=== PATIENT | male | born 1960 | race Two or more races ===

== ENCOUNTER 2017-02-21 15:28 | Inpatient (IN) | payer SELFPAY ==
[~2017-02-21] VITALS: Ht 165.1 cm; Wt 81.7 kg
[2017-02-22] MEDS ORDERED: SODIUM CHLORIDE 0.9% 2,000 ML IV ONE (04:59)
[2017-02-22 05:38] LABS: Basophils # (auto) 0.1 uL; Basophils % (auto) 0.4 % (0.0-2.0); Eosinophils # (auto) 0 uL; Eosinophils % (auto) 0.2 % (0.0-7.0); Hematocrit 36.1 % (41.0-53.0); Hemoglobin 12.5 g/dL (13.5-17.5); Lymphocytes # (auto) 1.2 uL; Lymphocytes % (auto) 6.5 % (10.0-50.0); Mean Corpuscular Hemoglobin 29.6 pg (28.0-32.0); Mean Corpuscular Hgb Conc. 34.7 g/dL (32.0-36.0); Mean Corpuscular Volume 85.3 fL (80.0-100.0); Mean Platelet Volume 8.4 fL (6.9-10.8); Monocytes # (auto) 2.1 uL; Monocytes % (auto) 11.1 % (0.0-12.0); Neutrophils # (auto) 15.1 uL; Neutrophils % (auto) 81.8 % (37.0-80.0); Nucleated Red Blood Cells % 0.1 %; Platelet Count (auto) 321 10^3/uL (140-450); Red Cell Distribution Width 12.3 % (11.8-14.3); White Blood Cell 18.5 10^3/uL (4.4-10.8)
[2017-02-22 05:52] LABS: INR 1.05 (0.9-1.15); Partial Thromboplastin Time 29.3 sec (22.64-33.71); Prothrombin Time 11.4 sec (9.37-12.3)
[2017-02-22] MEDS ORDERED: cefTRIAXone 1GM/50ML D5W 50 ML IV ONE (06:00)
[2017-02-22] MEDS ORDERED: VANCOMYCIN 1GM/250ML 250 ML IV ONE (06:00)
[2017-02-22 06:05] LABS: Albumin 2.7 g/dL (3.4-5.0); BUN/Creatinine Ratio 21.6; Bilirubin, Total 1.6 mg/dL (0.2-1.0); Potassium 3.6 mmol/L (3.5-5.1); Total Protein 8.6 g/dL (6.4-8.2)
[2017-02-22] MEDS: SODIUM CHLORIDE 0.9% 1,000 ML IV SCH (09:05)
[2017-02-22] MEDS ORDERED: DEXTROSE (50%) 50ML SYRG IV PRN (09:15)
[2017-02-22] MEDS ORDERED: VANCOMYCIN PER PHARMACY 0 MG IV SCH (09:15)
[2017-02-22] MEDS ORDERED: NITROGLYCERIN 0.4 MG SL TAB SL PRN (09:15)
[2017-02-22] MEDS ORDERED: TEMAZEPAM 15 MG CAP PO PRN (09:15)
[2017-02-22] MEDS ORDERED: DOCUSATE SOD 100 MG CAP PO PRN (09:15)
[2017-02-22] MEDS ORDERED: HYDROmorphone HCL 2 MG/ML VL IV PRN (09:15)
[2017-02-22] MEDS ORDERED: ONDANSETRON HCL 4 MG/2 ML VIAL IV PRN (09:15)
[2017-02-22] MEDS: ASCORBIC ACID 500 MG TAB PO SCH ×2 (10:00→22:09)
[2017-02-22] MEDS: FAMOTIDINE 20 MG TAB PO SCH ×2 (10:00→22:09)
[2017-02-22] MEDS: ZINC SULFATE 220 MG CAP PO SCH (10:00)
[2017-02-22] MEDS: MULTIPLE VITAMIN TAB PO SCH (10:00)
[2017-02-22] MEDS ORDERED: PNEUMOCOCCAL VACC POLYS 25 MCG/0.5 ML VIAL IM ONE ×2 (11:30→11:45)
[2017-02-22] MEDS ORDERED: INFLUENZA QUAD 2017-2018 0.5 ML SYRG IM ONE ×2 (11:30→11:45)
[2017-02-22] MEDS ORDERED: GLIP-115 PO (11:31)
[2017-02-22] MEDS ORDERED: METF-370 PO (11:31)
[2017-02-22] MEDS: ACCU-CHEK COMFORT CURVE STRIP VI SCH ×3 (11:32→21:55)
[2017-02-22] MEDS: HYDROcodone-ACET 5/325MG TAB PO PRN ×2 (11:58→16:28)
[2017-02-22] MEDS: Boost Glucose Control 8 Ounces PO SCH ×2 (12:09→17:48)
[2017-02-22] MEDS: InsuLIN REG 1unit/0.01ml Soln (100units/ml) SC SCH ×3 (12:09→21:56)
[2017-02-22 13:00] VITALS: BP 141/74
[2017-02-22 16:48] VITALS: BP 133/72
[2017-02-22] MEDS: VANCOMYCIN 1,250 MG in SODIUM CHL 0.9% 250 ML IV SCH (17:34)
[2017-02-22 21:57] VITALS: BP 124/70
[2017-02-23] MEDS: SODIUM CHLORIDE 0.9% 1,000 ML IV SCH ×2 (01:45→18:22)
[2017-02-23] MEDS: ACETAMINOPHEN 325 MG TAB PO PRN (04:34)
[2017-02-23 05:00] VITALS: BP 145/80
[2017-02-23] MEDS: VANCOMYCIN 1,250 MG in SODIUM CHL 0.9% 250 ML IV SCH ×2 (05:39→17:50)
[2017-02-23 06:09] LABS: Basophils # (auto) 0.1 uL; Basophils % (auto) 0.6 % (0.0-2.0); Eosinophils # (auto) 0.1 uL; Hematocrit 31.6 % (41.0-53.0); Hemoglobin 10.8 g/dL (13.5-17.5); Lymphocytes # (auto) 1.6 uL; Lymphocytes % (auto) 10.6 % (10.0-50.0); Mean Corpuscular Hemoglobin 29.1 pg (28.0-32.0); Mean Corpuscular Hgb Conc. 34.1 g/dL (32.0-36.0); Mean Corpuscular Volume 85.4 fL (80.0-100.0); Mean Platelet Volume 8.2 fL (6.9-10.8); Monocytes % (auto) 13.1 % (0.0-12.0); Neutrophils # (auto) 11.4 uL; Neutrophils % (auto) 74.7 % (37.0-80.0); Platelet Count (auto) 310 10^3/uL (140-450); White Blood Cell 15.3 10^3/uL (4.4-10.8)
[2017-02-23 06:26] LABS: Albumin 2.1 g/dL (3.4-5.0); BUN/Creatinine Ratio 13.6; Potassium 3.6 mmol/L (3.5-5.1)
[2017-02-23 06:28] LABS: Total Protein 6.7 g/dL (6.4-8.2)
[2017-02-23] MEDS: InsuLIN REG 1unit/0.01ml Soln (100units/ml) SC SCH ×4 (07:03→21:49)
[2017-02-23] MEDS: ACCU-CHEK COMFORT CURVE STRIP VI SCH ×4 (07:04→22:00)
[2017-02-23] MEDS: cefTRIAXone 1GM/50ML D5W 50 ML IV SCH (08:01)
[2017-02-23] MEDS: Boost Glucose Control 8 Ounces PO SCH ×3 (08:01→18:21)
[2017-02-23 09:00] VITALS: BP 111/63
[2017-02-23] MEDS: MULTIPLE VITAMIN TAB PO SCH (09:07)
[2017-02-23] MEDS: ZINC SULFATE 220 MG CAP PO SCH (09:07)
[2017-02-23] MEDS: FAMOTIDINE 20 MG TAB PO SCH ×2 (09:08→23:29)
[2017-02-23] MEDS: HYDROcodone-ACET 5/325MG TAB PO PRN ×2 (09:08→16:25)
[2017-02-23] MEDS: ASCORBIC ACID 500 MG TAB PO SCH ×2 (09:08→23:29)
[2017-02-23 13:00] VITALS: BP 127/73
[2017-02-23 13:30] LABS: Basophils # (auto) 0.1 uL; Basophils % (auto) 0.6 % (0.0-2.0); Eosinophils # (auto) 0.2 uL; Hematocrit 33.9 % (41.0-53.0); Hemoglobin 11.5 g/dL (13.5-17.5); Lymphocytes # (auto) 1.3 uL; Lymphocytes % (auto) 8.7 % (10.0-50.0); Mean Corpuscular Volume 85.4 fL (80.0-100.0); Mean Platelet Volume 7.9 fL (6.9-10.8); Monocytes # (auto) 1.9 uL; Neutrophils # (auto) 12.1 uL; Neutrophils % (auto) 77.7 % (37.0-80.0); Platelet Count (auto) 339 10^3/uL (140-450); Red Cell Distribution Width 12.1 % (11.8-14.3); White Blood Cell 15.6 10^3/uL (4.4-10.8)
[2017-02-23 13:59] LABS: Cholesterol 87 mg/dL (< 200); HDL Cholesterol 21 mg/dL (40-59); LDL Cholesterol 68 mg/dL (< 100); Triglycerides 78 mg/dL (< 150)
[2017-02-23 17:00] VITALS: BP 147/74
[2017-02-23 22:03] VITALS: BP 130/76
[2017-02-24 05:00] VITALS: BP 143/82
[2017-02-24] MEDS: VANCOMYCIN 1,250 MG in SODIUM CHL 0.9% 250 ML IV SCH (05:55)
[2017-02-24] MEDS: ACETAMINOPHEN 325 MG TAB PO PRN ×2 (05:56→22:53)
[2017-02-24 06:31] LABS: Albumin 1.9 g/dL (3.4-5.0); BUN/Creatinine Ratio 9.5; Bilirubin, Total 1.3 mg/dL (0.2-1.0); Calcium 7.9 mg/dL (8.5-10.1); Potassium 3.5 mmol/L (3.5-5.1); Total Protein 7.1 g/dL (6.4-8.2)
[2017-02-24] MEDS: ACCU-CHEK COMFORT CURVE STRIP VI SCH ×4 (06:45→22:11)
[2017-02-24] MEDS: InsuLIN REG 1unit/0.01ml Soln (100units/ml) SC SCH ×4 (06:45→22:20)
[2017-02-24 08:00] VITALS: BP 140/75
[2017-02-24] MEDS: Boost Glucose Control 8 Ounces PO SCH ×3 (08:00→18:10)
[2017-02-24] MEDS: cefTRIAXone 1GM/50ML D5W 50 ML IV SCH (08:26)
[2017-02-24] MEDS: HYDROcodone-ACET 5/325MG TAB PO PRN ×3 (08:49→18:21)
[2017-02-24 09:00] VITALS: BP 140/75
[2017-02-24] MEDS: ZINC SULFATE 220 MG CAP PO SCH (10:47)
[2017-02-24] MEDS: ASCORBIC ACID 500 MG TAB PO SCH ×2 (10:47→22:20)
[2017-02-24] MEDS: FAMOTIDINE 20 MG TAB PO SCH ×2 (10:47→22:19)
[2017-02-24] MEDS: MULTIPLE VITAMIN TAB PO SCH (10:47)
[2017-02-24 12:37] VITALS: BP 138/75
[2017-02-24] MEDS: SODIUM CHLORIDE 0.9% 1,000 ML IV SCH (14:14)
[2017-02-24 17:00] VITALS: BP 137/78
[2017-02-24 22:00] VITALS: BP 121/71
[2017-02-25] MEDS: SODIUM CHLORIDE 0.9% 1,000 ML IV SCH ×2 (01:25→23:53)
[2017-02-25] MEDS: HYDROcodone-ACET 5/325MG TAB PO PRN ×4 (04:30→22:37)
[2017-02-25 05:34] LABS: Basophils # (auto) 0.1 uL; Basophils % (auto) 0.7 % (0.0-2.0); Eosinophils # (auto) 0.3 uL; Eosinophils % (auto) 2.3 % (0.0-7.0); Hematocrit 31.2 % (41.0-53.0); Lymphocytes # (auto) 1.4 uL; Lymphocytes % (auto) 9.7 % (10.0-50.0); Mean Corpuscular Hemoglobin 29.8 pg (28.0-32.0); Mean Corpuscular Hgb Conc. 35.2 g/dL (32.0-36.0); Mean Corpuscular Volume 84.7 fL (80.0-100.0); Mean Platelet Volume 7.7 fL (6.9-10.8); Monocytes # (auto) 1.7 uL; Monocytes % (auto) 12.1 % (0.0-12.0); Neutrophils # (auto) 10.8 uL; Neutrophils % (auto) 75.2 % (37.0-80.0); Nucleated Red Blood Cells % 0.1 %; Platelet Count (auto) 354 10^3/uL (140-450); Red Cell Distribution Width 11.9 % (11.8-14.3); White Blood Cell 14.4 10^3/uL (4.4-10.8)
[2017-02-25 05:39] VITALS: BP 136/69
[2017-02-25 05:52] LABS: Albumin 1.8 g/dL (3.4-5.0); Calcium 7.9 mg/dL (8.5-10.1); Potassium 3.5 mmol/L (3.5-5.1)
[2017-02-25 05:54] LABS: BUN/Creatinine Ratio 9.2
[2017-02-25 05:56] LABS: Bilirubin, Total 0.8 mg/dL (0.2-1.0); Total Protein 6.8 g/dL (6.4-8.2)
[2017-02-25] MEDS: cefTRIAXone 1GM/50ML D5W 50 ML IV SCH (06:08)
[2017-02-25] MEDS: InsuLIN REG 1unit/0.01ml Soln (100units/ml) SC SCH ×4 (06:26→22:00)
[2017-02-25] MEDS: ACCU-CHEK COMFORT CURVE STRIP VI SCH ×4 (06:26→22:26)
[2017-02-25] MEDS: Boost Glucose Control 8 Ounces PO SCH ×3 (08:44→18:00)
[2017-02-25 09:00] VITALS: BP 121/64
[2017-02-25] MEDS: FAMOTIDINE 20 MG TAB PO SCH ×2 (09:48→22:37)
[2017-02-25] MEDS: ASCORBIC ACID 500 MG TAB PO SCH ×2 (09:48→22:37)
[2017-02-25] MEDS: ZINC SULFATE 220 MG CAP PO SCH (09:48)
[2017-02-25] MEDS: MULTIPLE VITAMIN TAB PO SCH (09:48)
[2017-02-25] MEDS ORDERED: HYDROmorphone HCL 2 MG/ML VL IV ONE (11:00)
[2017-02-25 11:55] LABS: Urine Bilirubin Negative (Negative); Urine Blood Negative /uL (Negative); Urine Color Yellow (Yellow); Urine Glucose 3+ mg/dL (Normal); Urine Ketone 1+ (Negative); Urine Nitrite Negative (Negative); Urine RBC <1 /hpf (0 - 3); Urine Squamous Epithelial Cell FEW /hpf (<5); Urine Urobilinogen Normal (Negative)
[2017-02-25 13:00] VITALS: BP 151/92
[2017-02-25] MEDS ORDERED: HYDROmorphone HCL 2 MG/ML VL IV PRN ×2 (14:30→20:00)
[2017-02-25 16:59] VITALS: BP 153/77
[2017-02-25 22:00] VITALS: BP 120/71
[2017-02-25] MEDS: ACETAMINOPHEN 325 MG TAB PO PRN (22:37)
[2017-02-26 05:00] VITALS: BP 149/75
[2017-02-26 06:09] LABS: INR 1.14 (0.9-1.15); Prothrombin Time 12.4 sec (9.37-12.3)
[2017-02-26 06:14] LABS: Calcium 8.1 mg/dL (8.5-10.1); Magnesium 1.8 mg/dL (1.6-2.6); Potassium 3.8 mmol/L (3.5-5.1)
[2017-02-26 06:15] LABS: Basophils # (auto) 0.1 uL; Basophils % (auto) 0.5 % (0.0-2.0); Eosinophils # (auto) 0.3 uL; Eosinophils % (auto) 1.9 % (0.0-7.0); Hematocrit 29.9 % (41.0-53.0); Hemoglobin 10.5 g/dL (13.5-17.5); Lymphocytes # (auto) 1.3 uL; Lymphocytes % (auto) 9.1 % (10.0-50.0); Mean Corpuscular Hemoglobin 29.7 pg (28.0-32.0); Mean Corpuscular Hgb Conc. 35.1 g/dL (32.0-36.0); Mean Corpuscular Volume 84.8 fL (80.0-100.0); Mean Platelet Volume 7.9 fL (6.9-10.8); Monocytes # (auto) 1.8 uL; Monocytes % (auto) 12.7 % (0.0-12.0); Neutrophils # (auto) 10.5 uL; Neutrophils % (auto) 75.8 % (37.0-80.0); Nucleated Red Blood Cells % 0.1 %; Platelet Count (auto) 356 10^3/uL (140-450); Red Cell Distribution Width 12.1 % (11.8-14.3); White Blood Cell 13.8 10^3/uL (4.4-10.8)
[2017-02-26 06:20] LABS: BUN/Creatinine Ratio 7.8
[2017-02-26] MEDS: ACETAMINOPHEN 325 MG TAB PO PRN ×2 (06:23→12:03)
[2017-02-26] MEDS: cefTRIAXone 1GM/50ML D5W 50 ML IV SCH (06:26)
[2017-02-26] MEDS: InsuLIN REG 1unit/0.01ml Soln (100units/ml) SC SCH ×4 (06:31→22:21)
[2017-02-26] MEDS: ACCU-CHEK COMFORT CURVE STRIP VI SCH ×4 (06:34→22:21)
[2017-02-26 08:00] VITALS: BP 151/81
[2017-02-26] MEDS: Boost Glucose Control 8 Ounces PO SCH ×3 (08:00→16:01)
[2017-02-26] MEDS: FAMOTIDINE 20 MG TAB PO SCH ×2 (08:42→21:55)
[2017-02-26 09:00] VITALS: BP 151/81
[2017-02-26] MEDS: HYDROmorphone HCL 2 MG/ML VL IV PRN ×2 (09:28→15:42)
[2017-02-26] MEDS: MULTIPLE VITAMIN TAB PO SCH (10:00)
[2017-02-26] MEDS: ZINC SULFATE 220 MG CAP PO SCH (10:00)
[2017-02-26] MEDS: ASCORBIC ACID 500 MG TAB PO SCH ×2 (10:00→21:55)
[2017-02-26] MEDS ORDERED: MAGNESIUM SULFATE 1GM/100ML 100 ML IV ONE (12:15)
[2017-02-26 12:36] VITALS: BP 148/69
[2017-02-26] MEDS: SODIUM CHLORIDE 0.9% 1,000 ML IV SCH (13:05)
[2017-02-26 16:35] VITALS: BP 140/81
[2017-02-26] MEDS ORDERED: MIDAZOLAM HCL 1MG/1ML-2 ML VIAL ONE (16:49)
[2017-02-26] MEDS ORDERED: PROPOFOL 10 MG/ML 20 ML IV ONE (16:49)
[2017-02-26] MEDS ORDERED: SODIUM CHL 0.9% 250 ML ONE (16:49)
[2017-02-26] MEDS ORDERED: fentaNYL CITRATE 100 MCG/2 ML VL ONE (16:49)
[2017-02-26] MEDS ORDERED: ONDANSETRON HCL 4 MG/2 ML VIAL ONE (16:49)
[2017-02-26] MEDS ORDERED: BUPIVACAINE 0.75% INJ 10ML MPV SDV IJ ONE (16:54)
[2017-02-26] MEDS ORDERED: ceFAZolin 1GM VL ONE (16:54)
[2017-02-26] MEDS ORDERED: METOCLOPRAMIDE HCL 5MG/ml INJ 2ml VIAL IV ONE (17:00)
[2017-02-26] MEDS ORDERED: HYDROmorphone HCL 2 MG/ML VL IV PRN (17:00)
[2017-02-26] MEDS ORDERED: ACCU-CHEK COMFORT CURVE STRIP VI ONE (17:00)
[2017-02-26] MEDS ORDERED: ceFAZolin 1GM/50ML 50 ML IV ONE (17:03)
[2017-02-26] MEDS: HYDROcodone-ACET 5/325MG TAB PO PRN (21:55)
[2017-02-26 22:00] VITALS: BP 134/83
[2017-02-27] VITALS (7 sets, daily range): BP systolic 126–150; BP diastolic 68–85
[2017-02-27] MEDS: HYDROcodone-ACET 5/325MG TAB PO PRN ×4 (04:24→21:34)
[2017-02-27 05:42] LABS: Basophils # (auto) 0.1 uL; Basophils % (auto) 0.6 % (0.0-2.0); Eosinophils # (auto) 0.2 uL; Eosinophils % (auto) 1.2 % (0.0-7.0); Hematocrit 30.2 % (41.0-53.0); Hemoglobin 10.5 g/dL (13.5-17.5); Lymphocytes # (auto) 1.3 uL; Lymphocytes % (auto) 9.1 % (10.0-50.0); Mean Corpuscular Hemoglobin 29.6 pg (28.0-32.0); Mean Corpuscular Volume 84.7 fL (80.0-100.0); Mean Platelet Volume 7.5 fL (6.9-10.8); Monocytes # (auto) 1.7 uL; Neutrophils % (auto) 77.1 % (37.0-80.0); Platelet Count (auto) 418 10^3/uL (140-450); Red Cell Distribution Width 12.2 % (11.8-14.3); White Blood Cell 14.3 10^3/uL (4.4-10.8)
[2017-02-27] MEDS: SODIUM CHLORIDE 0.9% 1,000 ML IV SCH ×2 (05:48→22:25)
[2017-02-27] MEDS: cefTRIAXone 1GM/50ML D5W 50 ML IV SCH (06:06)
[2017-02-27] MEDS: ACCU-CHEK COMFORT CURVE STRIP VI SCH ×4 (06:37→22:00)
[2017-02-27] MEDS: InsuLIN REG 1unit/0.01ml Soln (100units/ml) SC SCH ×4 (06:38→21:35)
[2017-02-27] MEDS: Boost Glucose Control 8 Ounces PO SCH ×3 (08:00→18:00)
[2017-02-27] MEDS: ASCORBIC ACID 500 MG TAB PO SCH ×2 (10:34→21:26)
[2017-02-27] MEDS: MULTIPLE VITAMIN TAB PO SCH (10:34)
[2017-02-27] MEDS: FAMOTIDINE 20 MG TAB PO SCH ×2 (10:34→21:26)
[2017-02-27] MEDS: ZINC SULFATE 220 MG CAP PO SCH (10:34)
[2017-02-27] MEDS ORDERED: LEVOFLOXACIN 500MG 100 ML IV ONE (13:00)
[2017-02-28 05:00] VITALS: BP 174/83
[2017-02-28] MEDS: HYDROcodone-ACET 5/325MG TAB PO PRN ×2 (05:15→21:39)
[2017-02-28 06:27] LABS: Basophils # (auto) 0.1 uL; Basophils % (auto) 0.7 % (0.0-2.0); Eosinophils # (auto) 0.3 uL; Eosinophils % (auto) 3.3 % (0.0-7.0); Hematocrit 30.1 % (41.0-53.0); Hemoglobin 10.5 g/dL (13.5-17.5); Lymphocytes # (auto) 1.4 uL; Lymphocytes % (auto) 15.8 % (10.0-50.0); Mean Corpuscular Hgb Conc. 35.1 g/dL (32.0-36.0); Mean Corpuscular Volume 85.6 fL (80.0-100.0); Mean Platelet Volume 7.6 fL (6.9-10.8); Monocytes # (auto) 1.2 uL; Monocytes % (auto) 13.1 % (0.0-12.0); Neutrophils # (auto) 5.9 uL; Neutrophils % (auto) 67.1 % (37.0-80.0); Platelet Count (auto) 442 10^3/uL (140-450); Red Cell Distribution Width 12.2 % (11.8-14.3); White Blood Cell 8.8 10^3/uL (4.4-10.8)
[2017-02-28 06:42] LABS: BUN/Creatinine Ratio 7.2; Calcium 8.3 mg/dL (8.5-10.1); Magnesium 2.1 mg/dL (1.6-2.6); Potassium 3.7 mmol/L (3.5-5.1)
[2017-02-28] MEDS: ACCU-CHEK COMFORT CURVE STRIP VI SCH ×4 (07:02→22:00)
[2017-02-28] MEDS: InsuLIN REG 1unit/0.01ml Soln (100units/ml) SC SCH ×4 (07:02→22:00)
[2017-02-28] MEDS: Boost Glucose Control 8 Ounces PO SCH ×3 (08:00→17:36)
[2017-02-28 09:00] VITALS: BP 160/94
[2017-02-28] MEDS: FAMOTIDINE 20 MG TAB PO SCH ×2 (09:18→20:24)
[2017-02-28] MEDS: LEVOFLOXACIN 500MG 100 ML IV SCH (09:18)
[2017-02-28] MEDS: MULTIPLE VITAMIN TAB PO SCH (09:18)
[2017-02-28] MEDS: ZINC SULFATE 220 MG CAP PO SCH (09:18)
[2017-02-28] MEDS: ASCORBIC ACID 500 MG TAB PO SCH ×2 (09:18→20:23)
[2017-02-28] MEDS ORDERED: glipiZIDE 5 MG TAB PO ONE (09:30)
[2017-02-28] MEDS ORDERED: metFORMIN HYDROCHLORIDE 500 MG TAB PO ONE (09:30)
[2017-02-28] MEDS ORDERED: DEXTROSE (50%) 50ML SYRG IV PRN (09:30)
[2017-02-28 13:00] VITALS: BP 150/78
[2017-02-28 17:00] VITALS: BP 150/93
[2017-02-28] MEDS: metFORMIN HYDROCHLORIDE 500 MG TAB PO SCH (17:35)
[2017-02-28] MEDS: glipiZIDE 5 MG TAB PO SCH (17:36)
[2017-02-28 22:00] VITALS: BP 142/71
[2017-03-01 05:00] VITALS: BP 149/79
[2017-03-01] MEDS: HYDROcodone-ACET 5/325MG TAB PO PRN ×3 (05:03→18:35)
[2017-03-01] MEDS: glipiZIDE 5 MG TAB PO SCH ×2 (06:26→18:29)
[2017-03-01] MEDS: metFORMIN HYDROCHLORIDE 500 MG TAB PO SCH ×2 (06:26→18:30)
[2017-03-01] MEDS: InsuLIN REG 1unit/0.01ml Soln (100units/ml) SC SCH ×4 (06:28→21:52)
[2017-03-01] MEDS: ACCU-CHEK COMFORT CURVE STRIP VI SCH ×4 (07:59→21:52)
[2017-03-01] MEDS: Boost Glucose Control 8 Ounces PO SCH ×3 (08:00→17:32)
[2017-03-01 09:00] VITALS: BP 147/94
[2017-03-01] MEDS: ZINC SULFATE 220 MG CAP PO SCH (10:43)
[2017-03-01] MEDS: MULTIPLE VITAMIN TAB PO SCH (10:43)
[2017-03-01] MEDS: FAMOTIDINE 20 MG TAB PO SCH ×2 (10:43→21:13)
[2017-03-01] MEDS: ASCORBIC ACID 500 MG TAB PO SCH ×2 (10:43→21:13)
[2017-03-01] MEDS: LEVOFLOXACIN 500MG 100 ML IV SCH (10:44)
[2017-03-01 13:00] VITALS: BP 139/70
[2017-03-01 17:00] VITALS: BP 158/91
[2017-03-01] MEDS ORDERED: VANCOMYCIN PER PHARMACY 0 MG IV SCH (17:00)
[2017-03-01] MEDS: VANCOMYCIN 1,250 MG in SODIUM CHL 0.9% 250 ML IV SCH (20:14)
[2017-03-01] MEDS: HYDROmorphone HCL 2 MG/ML VL IV PRN (21:14)
[2017-03-01 22:00] VITALS: BP 156/78
[2017-03-02 05:00] VITALS: BP 155/49
[2017-03-02] MEDS: HYDROmorphone HCL 2 MG/ML VL IV PRN ×3 (05:37→15:30)
[2017-03-02] MEDS: metFORMIN HYDROCHLORIDE 500 MG TAB PO SCH ×2 (06:14→17:20)
[2017-03-02] MEDS: glipiZIDE 5 MG TAB PO SCH ×2 (06:15→17:20)
[2017-03-02] MEDS: InsuLIN REG 1unit/0.01ml Soln (100units/ml) SC SCH ×4 (06:15→21:58)
[2017-03-02] MEDS: ACCU-CHEK COMFORT CURVE STRIP VI SCH ×4 (06:15→21:58)
[2017-03-02] MEDS: Boost Glucose Control 8 Ounces PO SCH ×3 (08:15→17:20)
[2017-03-02] MEDS: VANCOMYCIN 1,250 MG in SODIUM CHL 0.9% 250 ML IV SCH ×2 (08:16→20:11)
[2017-03-02 09:00] VITALS: BP 159/86
[2017-03-02] MEDS: ZINC SULFATE 220 MG CAP PO SCH (09:58)
[2017-03-02] MEDS: MULTIPLE VITAMIN TAB PO SCH (09:59)
[2017-03-02] MEDS: ASCORBIC ACID 500 MG TAB PO SCH ×2 (09:59→21:56)
[2017-03-02] MEDS: FAMOTIDINE 20 MG TAB PO SCH ×2 (10:21→21:56)
[2017-03-02] MEDS: LEVOFLOXACIN 500MG 100 ML IV SCH (10:35)
[2017-03-02 13:00] VITALS: BP 151/83
[2017-03-02] MEDS ORDERED: ATENOLOL 25 MG TAB PO ONE (16:00)
[2017-03-02 17:00] VITALS: BP 148/82
[2017-03-02] MEDS ORDERED: ENOXAPARIN SOD 40 MG/0.4 ML SYRINGE SC ONE (19:15)
[2017-03-02] MEDS ORDERED: ONDANSETRON HCL 4 MG/2 ML VIAL IM ONE (19:15)
[2017-03-02] MEDS: HYDROcodone-ACET 5/325MG TAB PO PRN (20:11)
[2017-03-02] MEDS ORDERED: ONDANSETRON HCL 4 MG/2 ML VIAL IV ONE (20:30)
[2017-03-02] MEDS: ATENOLOL 25 MG TAB PO SCH (21:57)
[2017-03-02 22:00] VITALS: BP 106/82
[2017-03-03] MEDS: HYDROcodone-ACET 5/325MG TAB PO PRN ×3 (01:36→12:11)
[2017-03-03 05:02] VITALS: BP 110/72
[2017-03-03] MEDS: glipiZIDE 5 MG TAB PO SCH (06:53)
[2017-03-03] MEDS: InsuLIN REG 1unit/0.01ml Soln (100units/ml) SC SCH ×2 (06:53→11:58)
[2017-03-03] MEDS: metFORMIN HYDROCHLORIDE 500 MG TAB PO SCH (06:53)
[2017-03-03] MEDS: ACCU-CHEK COMFORT CURVE STRIP VI SCH ×2 (06:54→11:58)
[2017-03-03 07:54] LABS: Basophils # (auto) 0.1 uL; Lymphocytes # (auto) 1.7 uL
[2017-03-03 07:56] LABS: Basophils % (auto) 1.2 % (0.0-2.0); Eosinophils # (auto) 0.2 uL; Eosinophils % (auto) 1.7 % (0.0-7.0); Hematocrit 31.2 % (41.0-53.0); Hemoglobin 10.6 g/dL (13.5-17.5); Lymphocytes % (auto) 16.5 % (10.0-50.0); Mean Corpuscular Hemoglobin 28.7 pg (28.0-32.0); Mean Corpuscular Hgb Conc. 33.9 g/dL (32.0-36.0); Mean Corpuscular Volume 84.8 fL (80.0-100.0); Mean Platelet Volume 6.9 fL (6.9-10.8); Monocytes % (auto) 9.4 % (0.0-12.0); Neutrophils # (auto) 7.3 uL; Neutrophils % (auto) 71.2 % (37.0-80.0); Platelet Count (auto) 626 10^3/uL (140-450); Red Cell Distribution Width 12.4 % (11.8-14.3); White Blood Cell 10.2 10^3/uL (4.4-10.8)
[2017-03-03] MEDS: VANCOMYCIN 1,250 MG in SODIUM CHL 0.9% 250 ML IV SCH (07:58)
[2017-03-03] MEDS: Boost Glucose Control 8 Ounces PO SCH ×2 (08:04→12:11)
[2017-03-03 08:23] LABS: BUN/Creatinine Ratio 7.6; Calcium 8.4 mg/dL (8.5-10.1); Potassium 4.3 mmol/L (3.5-5.1)
[2017-03-03 08:34] VITALS: BP 156/77
[2017-03-03 08:34] LABS: Platelet Estimate Increased
[2017-03-03] MEDS ORDERED: ENOXAPARIN SOD 40 MG/0.4 ML SYRINGE SC SCH (10:00)
[2017-03-03] MEDS: ATENOLOL 25 MG TAB PO SCH (10:00)
[2017-03-03] MEDS: ASCORBIC ACID 500 MG TAB PO SCH (10:37)
[2017-03-03] MEDS: ZINC SULFATE 220 MG CAP PO SCH (10:37)
[2017-03-03] MEDS: FAMOTIDINE 20 MG TAB PO SCH (10:37)
[2017-03-03] MEDS: MULTIPLE VITAMIN TAB PO SCH (10:37)
[2017-03-03] MEDS: LEVOFLOXACIN 500MG 100 ML IV SCH (10:39)
[2017-03-03 12:25] VITALS: BP 144/71
[2017-03-03 17:22] VITALS: BP 169/77
== END 2017-03-03 17:00 | disposition home or self-care (01) | DRG 854 ==
LOC: ER 15:39 → TELE 15:40 → TELE-WESTW 02-22 11:01
PROVIDERS: ADMIT Internal Medicine; ATTEND Family Medicine
PROC: 0H9MXZZ Drainage of Right Foot Skin, External Approach (ICD-10-PCS; 2017-02-26)
PROC: 0JBQ0ZZ Excision of Right Foot Subcutaneous Tissue and Fascia, Open Approach (ICD-10-PCS; principal; 2017-02-26 18:01)
DX: A41.9 Sepsis, unspecified organism (principal); E44.0 Moderate protein-calorie malnutrition; E11.21 Type 2 diabetes mellitus with diabetic nephropathy; E11.51 Type 2 diabetes mellitus with diabetic peripheral angiopathy without gangrene; E87.1 Hypo-osmolality and hyponatremia; L03.115 Cellulitis of right lower limb; L02.611 Cutaneous abscess of right foot; D63.8 Anemia in other chronic diseases classified elsewhere; E11.22 Type 2 diabetes mellitus with diabetic chronic kidney disease; E11.628 Type 2 diabetes mellitus with other skin complications; E11.621 Type 2 diabetes mellitus with foot ulcer; E11.65 Type 2 diabetes mellitus with hyperglycemia; L97.519 Non-pressure chronic ulcer of other part of right foot with unspecified severity; N18.2 Chronic kidney disease, stage 2 (mild); Z83.3 Family history of diabetes mellitus; Z68.30 Body mass index [BMI] 30.0-30.9, adult
CPT/HCPCS: 36415; 71010; 73630; 73718; 80048; 80053; 80061; 80202; 81001; 82962; 83036; 83605; 83615; 83735; 84443; 85025; 85610; 85730; 87040; 87075; 87077; 87086; 87186; 87205; 93005; 93926; 96361; 96365; 96367; 97163; J0690; J0696; J1815; J1956; J2250; J2405; J2704; J3490; J7060

== ENCOUNTER 2017-04-29 15:13 | Inpatient (IN) | payer MEDICAID ==
[~2017-04-29] VITALS: Ht 157.5 cm; Wt 86.6 kg
[~2017-04-29 15:13] MED LIST: GLIP-115 PO; LEVO750T64 PO; LISI10TA6 PO; METF-370 PO; SIMV-8 PO
[2017-04-29 16:15] LABS: Basophils # (auto) 0.1 uL; Basophils % (auto) 1.3 % (0.0-2.0); Eosinophils # (auto) 0.4 uL; Eosinophils % (auto) 4.7 % (0.0-7.0); Hematocrit 33.7 % (41.0-53.0); Hemoglobin 11.4 g/dL (13.5-17.5); INR 0.98 (0.9-1.15); Lymphocytes % (auto) 26.1 % (10.0-50.0); Mean Corpuscular Hemoglobin 28.7 pg (28.0-32.0); Mean Corpuscular Hgb Conc. 33.9 g/dL (32.0-36.0); Mean Corpuscular Volume 84.6 fL (80.0-100.0); Monocytes # (auto) 0.8 uL; Monocytes % (auto) 10.2 % (0.0-12.0); Neutrophils # (auto) 4.4 uL; Neutrophils % (auto) 57.7 % (37.0-80.0); Partial Thromboplastin Time 24.6 sec (22.64-33.71); Platelet Count (auto) 368 10^3/uL (140-450); Prothrombin Time 10.7 sec (9.37-12.3); Red Blood Cells 3.99 10^6/uL (4.5-5.90); Red Cell Distribution Width 13.8 % (11.8-14.3); White Blood Cell 7.6 10^3/uL (4.4-10.8)
[2017-04-29 16:38] LABS: Albumin 3.5 g/dL (3.4-5.0); BUN/Creatinine Ratio 16.5; Bilirubin, Total 0.9 mg/dL (0.2-1.0); Calcium 9.3 mg/dL (8.5-10.1); Potassium 4.9 mmol/L (3.5-5.1); Total Protein 8.3 g/dL (6.4-8.2)
[2017-04-29] MEDS ORDERED: HYDROcodone-ACET 10/325MG TAB PO ONE (22:30)
[2017-04-29] MEDS ORDERED: NEOMYCIN-BACITRACIN-POLYM UNITDOSE PKG TOP OINT TOP ONE (23:33)
[2017-04-30] MEDS ORDERED: ONDANSETRON HCL 4 MG/2 ML VIAL IV ONE ×2 (01:30→10:45)
[2017-04-30] MEDS ORDERED: HYDROmorphone HCL 2 MG/ML VL IV ONE (01:30)
[2017-04-30] MEDS ORDERED: SODIUM CHLORIDE 0.9% 1,000 ML IV ONE (02:15)
[2017-04-30] MEDS ORDERED: DEXTROSE (50%) 50ML SYRG IV PRN (03:15)
[2017-04-30] MEDS ORDERED: CLINDAMYCIN 600MG IV 50 ML IV ONE (03:15)
[2017-04-30] MEDS ORDERED: ONDANSETRON HCL 4 MG/2 ML VIAL IV PRN (03:15)
[2017-04-30] MEDS ORDERED: ACETAMINOPHEN 325 MG TAB PO PRN (03:15)
[2017-04-30] MEDS ORDERED: cloNIDine HCL 0.1 MG TAB PO PRN (03:15)
[2017-04-30] MEDS: SODIUM CHLORIDE 0.9% 1,000 ML IV SCH ×2 (03:27→16:40)
[2017-04-30] MEDS: InsuLIN REG 1unit/0.01ml Soln (100units/ml) SC SCH ×3 (05:55→17:21)
[2017-04-30] MEDS: ACCU-CHEK COMFORT CURVE STRIP VI SCH ×3 (05:55→17:21)
[2017-04-30] MEDS ORDERED: ceFAZolin 1GM/50ML 50 ML IV ONE (09:19)
[2017-04-30] MEDS: FAMOTIDINE 20 MG TAB PO SCH ×2 (10:00→21:38)
[2017-04-30] MEDS: LISINOPRIL 10 MG TAB PO SCH (10:00)
[2017-04-30] MEDS ORDERED: fentaNYL CITRATE 100 MCG/2 ML VL ONE (10:41)
[2017-04-30] MEDS ORDERED: MIDAZOLAM HCL 1MG/1ML-2 ML VIAL ONE (10:42)
[2017-04-30] MEDS: BUPIVACAINE 0.75% INJ 10ML MPV SDV IJ ONE ×2 (10:43→10:52)
[2017-04-30] MEDS ORDERED: ePHEDrine SULFATE 50 MG/ML AMP IV PRN (10:45)
[2017-04-30] MEDS ORDERED: LABETALOL HCL 5 MG/ML 4ML SYRINGE IV PRN (10:45)
[2017-04-30] MEDS ORDERED: KETOROLAC TROMETH 30 MG/ML 1ML VIAL IV ONE (10:45)
[2017-04-30] MEDS ORDERED: HYDROmorphone HCL 2 MG/ML VL IV PRN (10:45)
[2017-04-30] MEDS ORDERED: MIDAZOLAM HCL 1MG/1ML-2 ML VIAL IV PRN (10:45)
[2017-04-30] MEDS ORDERED: PROPOFOL 10 MG/ML 20 ML IV ONE (11:00)
[2017-04-30] MEDS ORDERED: MORPHINE SULF INJ 2 MG/ML SYRINGE 1ML IV ONE (12:00)
[2017-04-30 12:10] VITALS: BP 155/90
[2017-04-30] MEDS ORDERED: CIPR-217 PO (13:27)
[2017-04-30] MEDS ORDERED: FAMO-12 PO (13:27)
[2017-04-30] MEDS: CLINDAMYCIN 600MG IV 50 ML IV SCH ×2 (14:16→21:38)
[2017-04-30] MEDS: HYDROcodone-ACET 5/325MG TAB PO PRN ×2 (14:22→21:39)
[2017-04-30 14:43] VITALS: BP 156/81
[2017-04-30] MEDS ORDERED: cefTRIAXone 1GM/10ml IVPUSH 10 ML IV ONE (15:15)
[2017-04-30 16:52] VITALS: BP 125/72
[2017-04-30 20:00] VITALS: BP 144/82
[2017-04-30] MEDS ORDERED: ATORVASTATIN 20 MG TAB PO SCH (22:00)
[2017-04-30 22:02] VITALS: BP 144/82
[2017-05-01] MEDS: InsuLIN REG 1unit/0.01ml Soln (100units/ml) SC SCH ×3 (00:23→12:03)
[2017-05-01] MEDS: ACCU-CHEK COMFORT CURVE STRIP VI SCH ×3 (00:23→12:03)
[2017-05-01 05:00] VITALS: BP 139/78
[2017-05-01] MEDS: CLINDAMYCIN 600MG IV 50 ML IV SCH ×2 (05:24→14:00)
[2017-05-01] MEDS: SODIUM CHLORIDE 0.9% 1,000 ML IV SCH (05:26)
[2017-05-01 07:47] VITALS: BP 153/85
[2017-05-01 08:13] LABS: BUN/Creatinine Ratio 16.7; Calcium 8.8 mg/dL (8.5-10.1); Potassium 4.1 mmol/L (3.5-5.1)
[2017-05-01 08:16] LABS: Basophils # (auto) 0.1 uL; Basophils % (auto) 0.8 % (0.0-2.0); Eosinophils # (auto) 0.2 uL; Eosinophils % (auto) 2.4 % (0.0-7.0); Hematocrit 34.9 % (41.0-53.0); Hemoglobin 11.7 g/dL (13.5-17.5); Lymphocytes # (auto) 1.3 uL; Lymphocytes % (auto) 15.6 % (10.0-50.0); Mean Corpuscular Hemoglobin 28.6 pg (28.0-32.0); Mean Corpuscular Hgb Conc. 33.7 g/dL (32.0-36.0); Mean Corpuscular Volume 84.8 fL (80.0-100.0); Monocytes # (auto) 0.5 uL; Monocytes % (auto) 5.4 % (0.0-12.0); Neutrophils # (auto) 6.6 uL; Neutrophils % (auto) 75.8 % (37.0-80.0); Platelet Count (auto) 361 10^3/uL (140-450); Red Blood Cells 4.11 10^6/uL (4.5-5.90); Red Cell Distribution Width 13.5 % (11.8-14.3); White Blood Cell 8.7 10^3/uL (4.4-10.8)
[2017-05-01] MEDS ORDERED: cefTRIAXone 1GM/10ml IVPUSH 10 ML IV SCH (09:00)
[2017-05-01] MEDS: FAMOTIDINE 20 MG TAB PO SCH (09:46)
[2017-05-01] MEDS: LISINOPRIL 10 MG TAB PO SCH (09:46)
[2017-05-01] MEDS: HYDROcodone-ACET 5/325MG TAB PO PRN ×2 (09:53→15:45)
[2017-05-01 11:38] VITALS: BP 142/86
[2017-05-01] MEDS ORDERED: LEVO500T21 PO (14:13)
[2017-05-01] MEDS ORDERED: AMPI500C8 PO (14:13)
[2017-05-01] MEDS ORDERED: SACC250C PO (14:13)
[2017-05-01 15:11] VITALS: BP 142/86
== END 2017-05-01 16:23 | disposition home or self-care (01) | DRG 361 ==
LOC: ER 15:16 → OVERFLOW 15:17 → WEST WING 04-30 12:53 → CENTRAL 04-30 13:41
PROVIDERS: ADMIT Nurse Practitioner; ATTEND Internal Medicine
PROC: 0HRMXK3 Replacement of Right Foot Skin with Nonautologous Tissue Substitute, Full Thickness, External Approach (ICD-10-PCS; principal; 2017-04-30 10:29)
DX: E11.621 Type 2 diabetes mellitus with foot ulcer (principal); L97.519 Non-pressure chronic ulcer of other part of right foot with unspecified severity; E11.21 Type 2 diabetes mellitus with diabetic nephropathy; L03.115 Cellulitis of right lower limb; D63.8 Anemia in other chronic diseases classified elsewhere; E11.22 Type 2 diabetes mellitus with diabetic chronic kidney disease; N18.2 Chronic kidney disease, stage 2 (mild); E78.5 Hyperlipidemia, unspecified; I12.9 Hypertensive chronic kidney disease with stage 1 through stage 4 chronic kidney disease, or unspecified chronic kidney disease; F17.210 Nicotine dependence, cigarettes, uncomplicated; Z79.899 Other long term (current) drug therapy; Z82.49 Family history of ischemic heart disease and other diseases of the circulatory system; Z83.3 Family history of diabetes mellitus
CPT/HCPCS: 36415; 71045; 73700; 80048; 80053; 82962; 85025; 85610; 85730; 87070; 87075; 87076; 87077; 87186; 87205; 96361; 96365; 96375; J0690; J1815; J2250; J2405; J2704; J3490

== ENCOUNTER 2017-06-18 05:28 | Day surgery (SDC) | payer MEDICAID ==
[~2017-06-18] VITALS: Ht 165.1 cm; Wt 84.9 kg
[~2017-06-18 05:28] MED LIST changes: +AMPI500C8 PO; +CIPR-217 PO; +FAMO-12 PO; +LEVO500T21 PO; +SACC250C PO
[2017-06-18 06:39] LABS: Basophils # (auto) 0.1 uL; Eosinophils # (auto) 0.4 uL; Eosinophils % (auto) 6.2 % (0.0-7.0); Hematocrit 33.7 % (41.0-53.0); Hemoglobin 11.7 g/dL (13.5-17.5); Lymphocytes # (auto) 1.5 uL; Lymphocytes % (auto) 22.3 % (10.0-50.0); Mean Corpuscular Hemoglobin 29.4 pg (28.0-32.0); Mean Corpuscular Hgb Conc. 34.9 g/dL (32.0-36.0); Mean Corpuscular Volume 84.2 fL (80.0-100.0); Monocytes # (auto) 0.7 uL; Monocytes % (auto) 10.3 % (0.0-12.0); Neutrophils # (auto) 4.1 uL; Neutrophils % (auto) 60.2 % (37.0-80.0); Platelet Count (auto) 324 10^3/uL (140-450); Red Cell Distribution Width 13.4 % (11.8-14.3); White Blood Cell 6.9 10^3/uL (4.4-10.8)
[2017-06-18 06:46] LABS: Urine Bacteria NONE SEEN /hpf (None Seen); Urine Blood Negative /uL (Negative); Urine Specific Gravity 1.012 (1.001-1.035); Urine WBC <1 /hpf (0 - 3)
[2017-06-18 06:54] LABS: INR 0.96 (0.9-1.15); Partial Thromboplastin Time 24.2 sec (22.64-33.71); Prothrombin Time 10.5 sec (9.37-12.3)
[2017-06-18 06:58] LABS: Albumin 3.3 g/dL (3.4-5.0); Anion Gap 10 (5-15); BUN/Creatinine Ratio 18.9; Blood Urea Nitrogen 27 mg/dL (7-18); Calcium 8.8 mg/dL (8.5-10.1); Carbon Dioxide 23 mmol/L (21-32); Chloride 107 mmol/L (98-107); GFR African American 66 mL/min; GFR Non-African American 55 mL/min; Glucose 160 mg/dL (74-106); Magnesium 1.8 mg/dL (1.6-2.6); Potassium 3.9 mmol/L (3.5-5.1); Sodium 140 mmol/L (136-145)
[2017-06-18 07:09] LABS: Alanine Aminotransferase 19 U/L (16-61); Alkaline Phosphatase 94 U/L (45-117); Aspartate Aminotransferase 12 U/L (15-37); Bilirubin, Total 0.8 mg/dL (0.2-1.0); Total Protein 7.6 g/dL (6.4-8.2)
[2017-06-18] MEDS ORDERED: ceFAZolin 1GM/50ML 50 ML IV ONE (08:36)
[2017-06-18] MEDS ORDERED: ceFAZolin 1GM VL ONE (09:29)
[2017-06-18] MEDS ORDERED: BUPIVACAINE 0.75% INJ 10ML MPV SDV IJ ONE (09:29)
[2017-06-18] MEDS ORDERED: fentaNYL CITRATE 100 MCG/2 ML VL ONE (09:32)
[2017-06-18] MEDS ORDERED: ONDANSETRON HCL 4 MG/2 ML VIAL ONE (09:33)
[2017-06-18] MEDS ORDERED: MIDAZOLAM HCL 1MG/1ML-2 ML VIAL ONE (09:33)
[2017-06-18] MEDS ORDERED: PROPOFOL 10 MG/ML 20 ML IV ONE (09:33)
[2017-06-18] MEDS ORDERED: HYDROmorphone HCL 2 MG/ML VL IV PRN (09:45)
[2017-06-18] MEDS ORDERED: METOCLOPRAMIDE HCL 5MG/ml INJ 2ml VIAL IV ONE (09:45)
[2017-06-18] MEDS ORDERED: ACCU-CHEK COMFORT CURVE STRIP VI ONE (09:45)
[2017-06-18 10:39] VITALS: BP 150/84
== END 2017-06-18 10:42 | disposition home or self-care (01) ==
LOC: ER 05:29 → SUR 05:30 → ER 09:34 → SUR 10:42
PROVIDERS: ATTEND Podiatrist
DX: L97.519 Non-pressure chronic ulcer of other part of right foot with unspecified severity (principal); E11.621 Type 2 diabetes mellitus with foot ulcer; E66.9 Obesity, unspecified; Z68.31 Body mass index [BMI] 31.0-31.9, adult; I10 Essential (primary) hypertension; F41.9 Anxiety disorder, unspecified; F17.210 Nicotine dependence, cigarettes, uncomplicated
CPT/HCPCS: 15004; 15275; J3010; Q4128; 36415; 71045; 73630; 80053; 81001; 82962; 83735; 84484; 85025; 85610; 85730; 87070; 87075; 87076; 87077; 87186; 87205; 93005; J0690; J2250; J2405; J2704; J3490

== ENCOUNTER 2017-07-16 05:24 | Day surgery (SDC) | payer MEDICAID ==
[~2017-07-16] VITALS: Ht 165.1 cm; Wt 85.7 kg
[2017-07-16 07:48] LABS: Basophils # (auto) 0.1 uL; Basophils % (auto) 1.2 % (0.0-2.0); Eosinophils # (auto) 0.4 uL; Eosinophils % (auto) 5.6 % (0.0-7.0); Hematocrit 34.8 % (41.0-53.0); Hemoglobin 11.9 g/dL (13.5-17.5); INR 0.98 (0.9-1.15); Lymphocytes # (auto) 2.1 uL; Lymphocytes % (auto) 27.5 % (10.0-50.0); Mean Corpuscular Hemoglobin 29.2 pg (28.0-32.0); Mean Corpuscular Hgb Conc. 34.1 g/dL (32.0-36.0); Mean Corpuscular Volume 85.7 fL (80.0-100.0); Monocytes # (auto) 0.7 uL; Monocytes % (auto) 9.7 % (0.0-12.0); Neutrophils # (auto) 4.3 uL; Partial Thromboplastin Time 26.5 sec (22.64-33.71); Platelet Count (auto) 289 10^3/uL (140-450); Prothrombin Time 10.7 sec (9.37-12.3); Red Blood Cells 4.06 10^6/uL (4.5-5.90); Red Cell Distribution Width 12.9 % (11.8-14.3); White Blood Cell 7.6 10^3/uL (4.4-10.8)
[2017-07-16 07:56] LABS: Albumin 3.7 g/dL (3.4-5.0); BUN/Creatinine Ratio 12.8; Bilirubin, Total 0.9 mg/dL (0.2-1.0); Calcium 8.5 mg/dL (8.5-10.1); Potassium 4.9 mmol/L (3.5-5.1)
[2017-07-16] MEDS ORDERED: fentaNYL CITRATE 100 MCG/2 ML VL ONE (14:09)
[2017-07-16] MEDS ORDERED: MIDAZOLAM HCL 1MG/1ML-2 ML VIAL ONE (14:09)
[2017-07-16] MEDS ORDERED: ceFAZolin 1GM VL IV ONE (14:13)
[2017-07-16] MEDS ORDERED: MIDAZOLAM HCL 1MG/1ML-2 ML VIAL IV PRN (14:30)
[2017-07-16] MEDS ORDERED: LABETALOL HCL 5 MG/ML 4ML SYRINGE IV PRN (14:30)
[2017-07-16] MEDS ORDERED: ONDANSETRON HCL 4 MG/2 ML VIAL IV ONE (14:30)
[2017-07-16] MEDS ORDERED: ePHEDrine SULFATE 50 MG/ML AMP IV PRN (14:30)
[2017-07-16] MEDS ORDERED: ACCU-CHEK COMFORT CURVE STRIP VI ONE (14:30)
[2017-07-16] MEDS ORDERED: MORPHINE SULFATE 4 MG/ML SYR/VIAL IV PRN (14:30)
[2017-07-16] MEDS ORDERED: KETOROLAC TROMETH 30 MG/ML 1ML VIAL IV ONE (14:30)
[2017-07-16] MEDS ORDERED: KETOROLAC TROMETH 30 MG/ML 1ML VIAL ONE (14:31)
[2017-07-16] MEDS ORDERED: PROPOFOL 10 MG/ML 20 ML IV ONE (14:31)
[2017-07-16 15:35] VITALS: BP 138/65
[2017-07-16] MEDS ORDERED: MORPHINE SULFATE 4 MG/ML SYR/VIAL IV ONE (16:00)
== END 2017-07-16 14:45 | disposition home or self-care (01) ==
LOC: ER 05:26 → SUR 05:27
PROVIDERS: ATTEND Podiatrist
DX: E11.621 Type 2 diabetes mellitus with foot ulcer (principal); L97.513 Non-pressure chronic ulcer of other part of right foot with necrosis of muscle; E66.9 Obesity, unspecified; Z68.31 Body mass index [BMI] 31.0-31.9, adult; F41.9 Anxiety disorder, unspecified; F17.210 Nicotine dependence, cigarettes, uncomplicated; E11.22 Type 2 diabetes mellitus with diabetic chronic kidney disease; I12.9 Hypertensive chronic kidney disease with stage 1 through stage 4 chronic kidney disease, or unspecified chronic kidney disease; N18.3 Chronic kidney disease, stage 3 (moderate); D64.9 Anemia, unspecified
CPT/HCPCS: 15004; 15275; C9354; J2270; J3010; 36415; 80053; 82962; 85025; 85610; 85730; 87070; 87075; 87077; 87186; 87205; J0690; J1885; J2250; J2405; J2704

== ENCOUNTER 2017-08-27 06:12 | Inpatient (IN) | payer MEDICAID ==
[~2017-08-27] VITALS: Ht 160 cm; Wt 103.1 kg
[2017-08-27 07:16] LABS: Basophils # (auto) 0.1 uL; Basophils % (auto) 1.4 % (0.0-2.0); Eosinophils # (auto) 0.3 uL; Hematocrit 35.3 % (41.0-53.0); Hemoglobin 12.3 g/dL (13.5-17.5); INR 0.93 (0.9-1.15); Lymphocytes # (auto) 1.4 uL; Lymphocytes % (auto) 20.8 % (10.0-50.0); Mean Corpuscular Hgb Conc. 34.9 g/dL (32.0-36.0); Mean Corpuscular Volume 85.9 fL (80.0-100.0); Monocytes # (auto) 0.6 uL; Monocytes % (auto) 8.5 % (0.0-12.0); Neutrophils # (auto) 4.5 uL; Neutrophils % (auto) 65.3 % (37.0-80.0); Nucleated Red Blood Cells % 0.1 %; Platelet Count (auto) 289 10^3/uL (140-450); Prothrombin Time 10.1 sec (9.37-12.3); Red Blood Cells 4.11 10^6/uL (4.5-5.90); Red Cell Distribution Width 12.8 % (11.8-14.3); White Blood Cell 6.9 10^3/uL (4.4-10.8)
[2017-08-27 07:17] LABS: Albumin 3.7 g/dL (3.4-5.0); Calcium 9.5 mg/dL (8.5-10.1); Potassium 5.4 mmol/L (3.5-5.1)
[2017-08-27 07:20] LABS: Total Protein 8.6 g/dL (6.4-8.2)
[2017-08-27 07:25] LABS: BUN/Creatinine Ratio 17.3
[2017-08-27] MEDS ORDERED: SODIUM CHLORIDE 0.9% 1,000 ML IV ONE (08:04)
[2017-08-27] MEDS ORDERED: cefTRIAXone 1GM/10ml IVPUSH 10 ML IV ONE (08:15)
[2017-08-27] MEDS ORDERED: InsuLIN REG 1unit/0.01ml Soln (100units/ml) IV ONE (08:15)
[2017-08-27 08:33] LABS: Urine Bacteria NONE SEEN /hpf (None Seen); Urine Blood Negative /uL (Negative); Urine Specific Gravity 1.028 (1.001-1.035); Urine WBC <1 /hpf (0 - 3)
[2017-08-27] MEDS ORDERED: MORPHINE SULFATE 4 MG/ML SYR/VIAL IV PRN ×2 (10:45)
[2017-08-27] MEDS ORDERED: NITROGLYCERIN 0.4 MG SL TAB SL PRN (10:45)
[2017-08-27] MEDS ORDERED: TEMAZEPAM 15 MG CAP PO PRN (10:45)
[2017-08-27] MEDS ORDERED: LORazepam 0.5 MG TAB PO PRN (10:45)
[2017-08-27] MEDS ORDERED: LACTULOSE 20Gm/30ML SOLN PO PRN (10:45)
[2017-08-27] MEDS ORDERED: DEXTROSE (50%) 50ML SYRG IV PRN (10:45)
[2017-08-27] MEDS ORDERED: PROMETHAZINE HCL 25 MG/ML 1ML IV PRN (10:45)
[2017-08-27] MEDS: SODIUM CHLORIDE 0.9% 1,000 ML IV SCH ×2 (11:04→20:42)
[2017-08-27] MEDS: ACCU-CHEK COMFORT CURVE STRIP VI SCH ×4 (11:45→23:42)
[2017-08-27] MEDS: InsuLIN REG 1unit/0.01ml Soln (100units/ml) SC SCH ×4 (12:05→23:42)
[2017-08-27] MEDS ORDERED: CLINDAMYCIN 600MG IV 50 ML IV SCH (14:00)
[2017-08-27] MEDS ORDERED: AMPICILLIN SOD 2GM INJ 2 GM in SODIUM CHL 0.9% 100 ML IV ONE (14:30)
[2017-08-27 17:43] VITALS: BP 151/84
[2017-08-27 18:00] VITALS: BP 151/84
[2017-08-27] MEDS: glipiZIDE 5 MG TAB PO SCH (18:47)
[2017-08-27] MEDS: HYDROcodone-ACET 5/325MG TAB PO PRN (20:06)
[2017-08-27 20:52] VITALS: BP 111/49
[2017-08-27] MEDS: AMPICILLIN SOD 2GM INJ 2 GM in SODIUM CHL 0.9% 100 ML IV SCH (20:56)
[2017-08-27] MEDS: FAMOTIDINE 20 MG TAB PO SCH (21:59)
[2017-08-27] MEDS: ATORVASTATIN 20 MG TAB PO SCH (21:59)
[2017-08-28] MEDS: AMPICILLIN SOD 2GM INJ 2 GM in SODIUM CHL 0.9% 100 ML IV SCH ×4 (02:53→20:34)
[2017-08-28] MEDS: ACETAMINOPHEN 500 MG TAB PO PRN ×2 (03:41→20:01)
[2017-08-28] MEDS: InsuLIN REG 1unit/0.01ml Soln (100units/ml) SC SCH ×6 (03:41→23:37)
[2017-08-28] MEDS: ACCU-CHEK COMFORT CURVE STRIP VI SCH ×6 (03:42→23:37)
[2017-08-28 04:59] VITALS: BP 124/80
[2017-08-28 05:57] LABS: Basophils # (auto) 0.1 uL; Basophils % (auto) 1.2 % (0.0-2.0); Eosinophils # (auto) 0.3 uL; Eosinophils % (auto) 4.3 % (0.0-7.0); Hematocrit 32.6 % (41.0-53.0); Hemoglobin 11.6 g/dL (13.5-17.5); Lymphocytes # (auto) 1.7 uL; Lymphocytes % (auto) 25.1 % (10.0-50.0); Mean Corpuscular Hgb Conc. 35.5 g/dL (32.0-36.0); Mean Corpuscular Volume 84.3 fL (80.0-100.0); Monocytes # (auto) 0.7 uL; Monocytes % (auto) 10.1 % (0.0-12.0); Neutrophils # (auto) 4.1 uL; Neutrophils % (auto) 59.3 % (37.0-80.0); Nucleated Red Blood Cells % 0.2 %; Platelet Count (auto) 263 10^3/uL (140-450); Red Blood Cells 3.86 10^6/uL (4.5-5.90); Red Cell Distribution Width 12.8 % (11.8-14.3); White Blood Cell 6.9 10^3/uL (4.4-10.8)
[2017-08-28] MEDS: glipiZIDE 5 MG TAB PO SCH ×2 (06:03→17:16)
[2017-08-28] MEDS: SODIUM CHLORIDE 0.9% 1,000 ML IV SCH ×2 (06:17→17:16)
[2017-08-28 06:20] LABS: Albumin 3.1 g/dL (3.4-5.0); BUN/Creatinine Ratio 18.4; Bilirubin, Total 0.6 mg/dL (0.2-1.0); Calcium 8.8 mg/dL (8.5-10.1); Potassium 4.7 mmol/L (3.5-5.1); Total Protein 7.1 g/dL (6.4-8.2)
[2017-08-28] MEDS: HYDROcodone-ACET 5/325MG TAB PO PRN ×3 (07:30→21:52)
[2017-08-28 07:40] VITALS: BP 126/81
[2017-08-28] MEDS: ENOXAPARIN SOD 40 MG/0.4 ML SYRINGE SC SCH (08:49)
[2017-08-28] MEDS ORDERED: cefTRIAXone 1GM/10ml IVPUSH 10 ML IV SCH (09:00)
[2017-08-28] MEDS: LISINOPRIL 10 MG TAB PO SCH (09:39)
[2017-08-28 11:19] VITALS: BP 162/100
[2017-08-28 17:41] VITALS: BP 132/75
[2017-08-28 21:30] VITALS: BP 130/76
[2017-08-28] MEDS: FAMOTIDINE 20 MG TAB PO SCH (21:51)
[2017-08-28] MEDS: ATORVASTATIN 20 MG TAB PO SCH (21:51)
[2017-08-29] MEDS: AMPICILLIN SOD 2GM INJ 2 GM in SODIUM CHL 0.9% 100 ML IV SCH ×3 (02:40→15:00)
[2017-08-29] MEDS: SODIUM CHLORIDE 0.9% 1,000 ML IV SCH ×2 (02:42→12:42)
[2017-08-29] MEDS: ACCU-CHEK COMFORT CURVE STRIP VI SCH ×4 (03:36→16:00)
[2017-08-29] MEDS: InsuLIN REG 1unit/0.01ml Soln (100units/ml) SC SCH ×4 (03:37→16:00)
[2017-08-29 04:50] VITALS: BP 143/81
[2017-08-29 05:52] LABS: Basophils # (auto) 0.1 uL; Basophils % (auto) 1.2 % (0.0-2.0); Eosinophils # (auto) 0.3 uL; Eosinophils % (auto) 5.4 % (0.0-7.0); Hematocrit 32.7 % (41.0-53.0); Hemoglobin 11.5 g/dL (13.5-17.5); Lymphocytes # (auto) 1.4 uL; Lymphocytes % (auto) 22.6 % (10.0-50.0); Mean Corpuscular Hemoglobin 30.1 pg (28.0-32.0); Mean Corpuscular Hgb Conc. 35.3 g/dL (32.0-36.0); Mean Corpuscular Volume 85.5 fL (80.0-100.0); Monocytes # (auto) 0.6 uL; Monocytes % (auto) 10.7 % (0.0-12.0); Neutrophils # (auto) 3.6 uL; Neutrophils % (auto) 60.1 % (37.0-80.0); Platelet Count (auto) 252 10^3/uL (140-450); Red Blood Cells 3.83 10^6/uL (4.5-5.90); Red Cell Distribution Width 13.3 % (11.8-14.3); White Blood Cell 6.1 10^3/uL (4.4-10.8)
[2017-08-29] MEDS: glipiZIDE 5 MG TAB PO SCH (06:02)
[2017-08-29 06:16] LABS: Albumin 2.9 g/dL (3.4-5.0); Calcium 8.5 mg/dL (8.5-10.1); Potassium 4.2 mmol/L (3.5-5.1)
[2017-08-29 06:18] LABS: BUN/Creatinine Ratio 15.7
[2017-08-29 06:20] LABS: Bilirubin, Total 0.7 mg/dL (0.2-1.0)
[2017-08-29 09:00] VITALS: BP 127/71
[2017-08-29] MEDS: LISINOPRIL 10 MG TAB PO SCH (10:00)
[2017-08-29] MEDS: ENOXAPARIN SOD 40 MG/0.4 ML SYRINGE SC SCH (11:45)
[2017-08-29 13:00] VITALS: BP 115/71
[2017-08-29 15:18] VITALS: BP 115/71
[2017-08-29] MEDS ORDERED: MORPHINE SULFATE 8mg/ml INJ SDV IV PRN ×2 (17:00)
== END 2017-08-29 17:01 | disposition home or self-care (01) | DRG 420 ==
LOC: ER 06:15 → TELE 06:16 → TELE-EAST 17:42
PROVIDERS: ADMIT Internal Medicine; ATTEND Internal Medicine
DX: E11.65 Type 2 diabetes mellitus with hyperglycemia (principal); E11.621 Type 2 diabetes mellitus with foot ulcer; L03.115 Cellulitis of right lower limb; E11.22 Type 2 diabetes mellitus with diabetic chronic kidney disease; E87.5 Hyperkalemia; L97.519 Non-pressure chronic ulcer of other part of right foot with unspecified severity; E11.622 Type 2 diabetes mellitus with other skin ulcer; E87.1 Hypo-osmolality and hyponatremia; E78.5 Hyperlipidemia, unspecified; F17.210 Nicotine dependence, cigarettes, uncomplicated; L97.518 Non-pressure chronic ulcer of other part of right foot with other specified severity; K59.00 Constipation, unspecified; F41.9 Anxiety disorder, unspecified; D63.8 Anemia in other chronic diseases classified elsewhere; K21.9 Gastro-esophageal reflux disease without esophagitis; N18.9 Chronic kidney disease, unspecified; Z79.4 Long term (current) use of insulin; Z82.49 Family history of ischemic heart disease and other diseases of the circulatory system; Z83.3 Family history of diabetes mellitus; Z79.899 Other long term (current) drug therapy
CPT/HCPCS: 36415; 71046; 80053; 80061; 81001; 82962; 83036; 83735; 85025; 85610; 85652; 85730; 87081; 93005; 94761; 96361; 96365; 96375; J1815; J3490

== ENCOUNTER 2017-09-24 07:15 | Day surgery (SDC) | payer MEDICAID ==
[~2017-09-24] VITALS: Ht 152.4 cm; Wt 90.7 kg
[2017-09-24 08:00] LABS: Basophils # (auto) 0.1 uL; Basophils % (auto) 1.4 % (0.0-2.0); Eosinophils # (auto) 0.4 uL; Eosinophils % (auto) 5.3 % (0.0-7.0); Hematocrit 35.8 % (41.0-53.0); Hemoglobin 12.5 g/dL (13.5-17.5); Lymphocytes # (auto) 1.7 uL; Lymphocytes % (auto) 24.4 % (10.0-50.0); Mean Corpuscular Hemoglobin 29.9 pg (28.0-32.0); Mean Corpuscular Volume 85.4 fL (80.0-100.0); Monocytes # (auto) 0.7 uL; Monocytes % (auto) 9.9 % (0.0-12.0); Platelet Count (auto) 281 10^3/uL (140-450); Red Cell Distribution Width 13.2 % (11.8-14.3); White Blood Cell 6.8 10^3/uL (4.4-10.8)
[2017-09-24 08:19] LABS: Albumin 3.7 g/dL (3.4-5.0); BUN/Creatinine Ratio 22.8; Bilirubin, Total 1.5 mg/dL (0.2-1.0); Calcium 9.3 mg/dL (8.5-10.1); Potassium 4.7 mmol/L (3.5-5.1); Total Protein 8.2 g/dL (6.4-8.2)
[2017-09-24] MEDS ORDERED: SODIUM CHLORIDE 0.9% 1,000 ML IV ONE (08:38)
[2017-09-24] MEDS ORDERED: cefTRIAXone 1GM/10ml IVPUSH 10 ML IV ONE (08:45)
[2017-09-24] MEDS ORDERED: ceFAZolin 1GM/50ML 50 ML IV ONE (11:27)
[2017-09-24] MEDS ORDERED: PROPOFOL 10 MG/ML 20 ML IV ONE (11:48)
[2017-09-24] MEDS ORDERED: ONDANSETRON HCL 4 MG/2 ML VIAL ONE (11:48)
[2017-09-24] MEDS ORDERED: MIDAZOLAM HCL 1MG/1ML-2 ML VIAL ONE (11:48)
[2017-09-24] MEDS ORDERED: fentaNYL CITRATE 100 MCG/2 ML VL ONE (11:48)
[2017-09-24] MEDS ORDERED: SODIUM CHLORIDE LOCK 10 ML ONE (11:48)
[2017-09-24] MEDS ORDERED: BUPIVACAINE 0.75% INJ 10ML MPV SDV IJ ONE (11:50)
[2017-09-24] MEDS ORDERED: ACCU-CHEK COMFORT CURVE STRIP VI ONE (12:30)
[2017-09-24] MEDS ORDERED: METOCLOPRAMIDE HCL 5MG/ml INJ 2ml VIAL IV ONE (12:30)
[2017-09-24 12:42] VITALS: BP 116/75
[2017-09-24] MEDS ORDERED: fentaNYL CITRATE 100 MCG/2 ML VL IV ONE (13:00)
== END 2017-09-24 12:52 | disposition home or self-care (01) ==
LOC: ER 07:19 → OR 1 11:23
PROVIDERS: ATTEND Podiatrist Foot & Ankle Surgery
DX: E11.621 Type 2 diabetes mellitus with foot ulcer (principal); E66.01 Morbid (severe) obesity due to excess calories; F41.9 Anxiety disorder, unspecified; K21.9 Gastro-esophageal reflux disease without esophagitis; E11.40 Type 2 diabetes mellitus with diabetic neuropathy, unspecified; E11.22 Type 2 diabetes mellitus with diabetic chronic kidney disease; I12.9 Hypertensive chronic kidney disease with stage 1 through stage 4 chronic kidney disease, or unspecified chronic kidney disease; N18.2 Chronic kidney disease, stage 2 (mild); D64.9 Anemia, unspecified; E78.5 Hyperlipidemia, unspecified; Z68.39 Body mass index [BMI] 39.0-39.9, adult
CPT/HCPCS: 15004; 15275; C9354; J2765; J3010; J7030; 36415; 71046; 80053; 82962; 83735; 84443; 85025; 93005; J0690; J2250; J2405; J2704; J3490